=== PATIENT | female | born 1930 | race Caucasian/White ===

== ENCOUNTER 2016-05-11 13:56 | Emergency (ER) | payer MEDICARE ==
[2016-05-11 15:30] VITALS: BP 142/79
--- NOTE | 2016-05-11 15:51 | UC ---
Dizzy HPI - History Of Current Complaint Chief Complaint: UCDizziness Stated Complaint: DIZINESS,SINUS PRESSURE Time Seen by Provider: 05/11/16 15:45 Hx Obtained From: Patient ?: No Onset/Duration: Sudden Onset, Lasting Hours - 7, Still Present Timing: Seconds - 30-60 Severity Initially: Moderate Severity Currently: None Character: Head Spinning Aggravating Factor(s): Position Change Alleviating Factor(s): Rest Associated Signs And Symptoms: Positive: Unsteady Gait - just with the vertigo, Change In Medication - started thyroid a month ago. Negative: Nausea, Vomiting , Diaphoresis, Tinnitus - Risk Factors Cardiac Risk Factors: Hypertension CVA Risk Factor: Hypertension - Allergies/Home Medications Allergies/Adverse Reactions: Allergies Allergy/AdvReac Type Severity Reaction Status Date / Time Tetracycline AdvReac Nausea Verified 05/11/16 15:21 Home Medications: Home Medications Levothyroxine TAB* [Synthroid 25 MCG TAB*] mcg PO 0800 05/11/16 [History] PMH/Surg Hx/FS Hx/Imm Hx Endocrine History Of: Reports: Hypothyroidism Denies: Diabetes Cardiovascular History Of: Reports: Hypertension Denies: Congestive Heart Failure Respiratory History Of: Reports: Asthma GI/ History Of: Comment Only: Renal Disease - COMPROMISED EGFR Cancer History Of: Reports: Breast Cancer - 2009 Right, 2015 Right-different Kinds - Surgical History Surgical History: Yes Surgery Procedure, Year, and Place: Right Mastectomy, 09/14/14; Cholecystectomy- 2010, Rotator Cuff 2001, , Partial Colectomy-2010, Reverse colostomy 2011, Herrnioraphies-2011, 2012, Rt Hip 2008, Left Hip 2010, Partial Hysterectomy-2002 , Appendectomy -age-mid 20's, Cataracts 2013, Rt Lumpectomy 2008 - Family History Known Family History: Positive: Hypertension, Diabetes Negative: Cardiac Disease - Social History Occupation: Retired Lives: Alone Alcohol Use: None Substance Use Type: None Smoking Status (MU): Never Smoked Tobacco Have You Smoked in the Last Year: No - Immunization History Most Recent Influenza Vaccination: [id number] Review of Systems Skin: Bruising - left cheek. ENT: Nasal Discharge Respiratory: Cough - occasional, nothing new. Neurological: Headache - some sinus pressure. All Other Systems Reviewed And Are Negative: Yes Physical Exam Triage Information Reviewed: Yes Appearance: Well-Appearing, No Pain Distress, Well-Nourished Vital Signs: Initial Vital Signs Temp 98.2 F 05/11/16 15:06 Pulse 85 05/11/16 15:06 Resp 18 05/11/16 15:06 BP 156/69 05/11/16 15:06 Pulse Ox 95 05/11/16 15:06 Vital Signs Reviewed: Yes Eye Exam: Other - No nystagmus at rest. Eyes: Positive: Conjunctiva Inflamed - mild bilateral ENT: Positive: Nasal congestion - allergic changes, TMs normal Neck exam: Normal Respiratory Exam: Normal Cardiovascular Exam: Normal Musculoskeletal Exam: Normal Neurological Exam: Normal Psychological Exam: Normal Skin Exam: Normal Dizzy Course/Dx - Differential Dx/Diagnosis Differential Diagnosis/HQI/PQRI: Benign Paroxysmal Positional Vertigo, Labyrinthitis, Meniere's Disease Provider Diagnoses: Acute labyrinthitis Discharge - Discharge Plan Condition: Stable Disposition: HOME Prescriptions: Meclizine HCl [Meclizine 25] 25 mg PO QID #30 tab predniSONE TAB* [Deltasone TAB*] 20 mg PO DAILY #18 tab Patient Education Materials: Labyrinthitis (ED), Meclizine (By mouth), Prednisone (By mouth) Additional Instructions: Use a walker for stability with the dizziness.
== END 2016-05-11 16:16 | disposition home or self-care (01) ==
LOC: UCCORT 13:56
DX: H83.09 Labyrinthitis, unspecified ear (principal); E03.9 Hypothyroidism, unspecified; Z88.1 Allergy status to other antibiotic agents
CPT/HCPCS: 93005; 99212; G0463